=== PATIENT | male | born 1940 | race Caucasian/White ===

== ENCOUNTER 2017-03-28 10:56 | Emergency (ER) | payer OTHER, MEDICARE ==
[2017-03-28 11:40] VITALS: BP 116/68
--- NOTE | 2017-03-28 11:52 | UC ---
Hand/Wrist HPI - HPI Summary HPI Summary: right hand pain and swelling after a fall thumb, index and middle finger tenderness, full rom, tender to touch - History Of Current Complaint Chief Complaint: UCUpperExtremity Stated Complaint: HAND INJURY Time Seen by Provider: 03/28/17 11:35 Hx Obtained From: Patient, Family/Lead [employer]er [employer] ?: No Mechanism Of Injury: fall Onset/Duration: Sudden Onset, Lasting Days - 2, Still Present Severity Initially: Moderate Severity Currently: Moderate Pain Intensity: 6 Pain Scale Used: 0-10 Numeric Character Of Pain: Aching, Throbbing Aggravating Factor(s): Movement Alleviating: Rest, Ice, OTC Meds Associated Signs And Symptoms: Positive: Swelling, Bruising Related History: Dominant Hand Right - Allergies/Home Medications Allergies/Adverse Reactions: Allergies Allergy/AdvReac Type Severity Reaction Status Date / Time Penicillins Allergy Severe Difficulty Verified 05/20/16 11:20 Breathing Tree Nuts Allergy Severe anaphylaxis Verified 05/20/16 11:20 peanuts Allergy Anaphylatic Uncoded 03/28/17 11:40 Shock PMH/Surg Hx/FS Hx/Imm Hx Previously Healthy: No Neurological History: Other Other Neurological History: Parlinsons - Surgical History Surgical History: None Surgery Procedure, Year, and Place: 02/2012 SPINAL FUSION OF L4/5- [facility] [facility] brain stimulation leads placed - Family History Known Family History: Positive: None - Social History Occupation: Retired Lives: With Family Alcohol Use: Daily Alcohol Amount: 1 drink with dinner Substance Use Type: None Smoking Status (MU): Former Smoker Type: Cigars Have You Smoked in the Last Year: No Household Exposure Type: Cigarettes Review of Systems Constitutional: Negative Skin: Negative Eyes: Negative ENT: Negative Respiratory: Negative Cardiovascular: Negative Gastrointestinal: Negative Genitourinary: Negative Motor: Negative Neurovascular: Negative Musculoskeletal: Arthralgia - right hand 1,2,3 fingers Neurological: Negative Psychological: Negative All Other Systems Reviewed And Are Negative: Yes Physical Exam Triage Information Reviewed: Yes Appearance: Well-Appearing, No Pain Distress, Well-Nourished Vital Signs: Initial Vital Signs Temp 97.9 F 03/28/17 11:34 Pulse 58 03/28/17 11:34 Resp 16 03/28/17 11:34 BP 116/68 03/28/17 11:34 Pulse Ox 100 03/28/17 11:34 Vital Signs Reviewed: Yes Eye Exam: Normal Eyes: Positive: Conjunctiva Clear ENT Exam: Normal ENT: Positive: Normal ENT inspection, Hearing grossly normal, TMs normal. Negative: Nasal congestion, Nasal drainage, Trismus, Muffled/hoarse voice Dental Exam: Normal Neck exam: Normal Neck: Positive: Supple, Nontender, No Lymphadenopathy Respiratory Exam: Normal Respiratory: Positive: Chest non-tender, Lungs clear, Normal breath sounds, No respiratory distress, No accessory muscle use Cardiovascular Exam: Normal Cardiovascular: Positive: RRR, Pulses Normal, Brisk Capillary Refill Musculoskeletal Exam: Normal Musculoskeletal: Positive: Strength Intact, ROM Limited @, Edema @ - right hand Neurological Exam: Normal Neurological: Positive: Alert, Muscle Tone Normal Psychological Exam: Normal Skin Exam: Normal Diagnostics - Radiology No standard instances Xray Interpretation: No Acute Changes Radiology Interpretation Completed By: Radiologist Re-Evaluation - Re-Evaluation First Eval Change: Improved - aliyah wrap apllied for comfort and help to decrease swelling Hand/Wrist Course/Dx - Course Course Of Treatment: rice, ibuprofen follow with pcp - Differential Dx/Diagnosis Differential Diagnosis/HQI/PQRI: Contusion, Fracture, Sprain, Strain Provider Diagnoses: Right hand contusion Discharge - Discharge Plan Condition: Stable Disposition: HOME Patient Education Materials: Ibuprofen (By mouth), Contusion in Adults (ED), RICE Therapy (ED) Referrals: Carolyn Sandra MD [Primary Care Provider] - If Needed
--- NOTE | 2017-03-28 12:47 | RAD ---
Indication: Fall, first 3 digits pain. 4 views of the right hand demonstrates no fracture. No other bone or joint abnormality is identified. IMPRESSION: No fracture of the right hand is noted.
== END 2017-03-28 12:57 | disposition home or self-care (01) ==
LOC: UCEAST 10:56
DX: S60.221A Contusion of right hand, initial encounter (principal); W19.XXXA Unspecified fall, initial encounter; Z88.0 Allergy status to penicillin; Z91.010 Allergy to peanuts; Z91.018 Allergy to other foods; Z87.891 Personal history of nicotine dependence
CPT/HCPCS: 99211; G0463

== ENCOUNTER 2017-04-03 12:10 | Emergency (ER) | payer OTHER, MEDICARE ==
--- NOTE | 2017-04-03 13:29 | UC ---
Hand/Wrist HPI - HPI Summary HPI Summary: SEEN HERE 03/28/17 WITH RIGHT HAND PAIN AND SWELLING AFTER FALLING. XRAYS WERE NEGATIVE AND PT DX WITH CONTUSION. THOMPSON WRAPPED FOR COMFORT. PT PRESENTS WITH PERSISTENT RIGHT 2ND FINGER PAIN AND SWELLING. - History Of Current Complaint Chief Complaint: UCSkin Stated Complaint: RED SWOLLEN HAND Time Seen by Provider: 04/03/17 13:21 Hx Obtained From: Patient Onset/Duration: Sudden Onset, Still Present Severity Initially: Moderate Severity Currently: Moderate Pain Intensity: 4 Pain Scale Used: 0-10 Numeric Character Of Pain: Aching Aggravating Factor(s): Movement Alleviating: Rest Associated Signs And Symptoms: Positive: Swelling, Redness Related History: Dominant Hand Right - Allergies/Home Medications Allergies/Adverse Reactions: Allergies Allergy/AdvReac Type Severity Reaction Status Date / Time Penicillins Allergy Severe Difficulty Verified 04/03/17 12:29 Breathing Tree Nuts Allergy Severe anaphylaxis Verified 04/03/17 12:29 peanuts Allergy Anaphylatic Uncoded 04/03/17 12:29 Shock PMH/Surg Hx/FS Hx/Imm Hx Other Neurological History: PARKINSONS - Surgical History Surgical History: None Surgery Procedure, Year, and Place: 02/2012 SPINAL FUSION OF L4/5- [facility] [facility] brain stimulation leads placed - Family History Known Family History: Positive: None - Social History Alcohol Use: Daily Alcohol Amount: 1 drink with dinner Substance Use Type: None Smoking Status (MU): Former Smoker Type: Cigars Have You Smoked in the Last Year: No Household Exposure Type: Cigarettes Review of Systems Constitutional: Negative Skin: Other - ERYTHEMA Respiratory: Negative Cardiovascular: Negative Gastrointestinal: Negative Musculoskeletal: Arthralgia, Decreased ROM, Edema All Other Systems Reviewed And Are Negative: Yes Physical Exam Triage Information Reviewed: Yes Appearance: Well-Appearing, No Pain Distress, Well-Nourished Vital Signs: Initial Vital Signs Temp 98 F 04/03/17 12:30 Pulse 67 04/03/17 12:30 Resp 15 04/03/17 12:30 Pulse Ox 99 04/03/17 12:30 Vital Signs Reviewed: Yes Eyes: Positive: Conjunctiva Clear ENT: Positive: Hearing grossly normal Neck: Positive: Supple Respiratory: Positive: No respiratory distress, No accessory muscle use Cardiovascular: Positive: Pulses Normal Abdomen Description: Positive: Soft Musculoskeletal: Positive: Edema @ - RIGHT 2ND FINGER PROXIMALLY WITH SOME ERYTHEMA, Other: - TTP RIGHT 2ND FINGER OVER PROXIMAL PHALANX Neurological: Positive: Alert Psychological: Positive: Age Appropriate Behavior Skin: Negative: rashes Diagnostics - Radiology RIGHT 2ND FINGER XRAY Xray Interpretation: No Acute Changes Radiology Interpretation Completed By: Radiologist Hand/Wrist Course/Dx - Differential Dx/Diagnosis Provider Diagnoses: RIGHT 2ND FINGER SPRAIN Discharge - Discharge Plan Condition: Stable Disposition: HOME Prescriptions: Acetaminop/Codeine 30 MG TAB* [Tylenol/Codeine 30 MG TAB*] 1 - 2 tab PO Q6H PRN #20 tab MDD 8 PRN Reason: Pain Cephalexin CAP* [Keflex 500 CAP*] 1,000 mg PO BID #20 cap Patient Education Materials: Finger Sprain (ED) Referrals: Carolyn Sandra MD [Primary Care Provider] - If Needed Abdiaziz Alcantar MD [Medical Doctor] - If Needed Additional Instructions: XRAY TODAY CONFIRMS NO FRACTURE. REDNESS LIKELY DUE TO SWELLING AND INFLAMMATION. DUE TO SMALL CHANCE OF INFECTION WILL COVER WITH CEPHALEXIN. SPLINT FOR COMFORT. KEEP HAND ELEVATED WHEN POSSIBLE. FOLLOW-UP WITH PCP OR ORTHO IF NOT IMPROVING.
--- NOTE | 2017-04-03 13:57 | RAD ---
INDICATION: Pain and swelling after fall COMPARISON: None TECHNIQUE: AP, lateral, and oblique views were obtained. FINDINGS: There is no acute fracture or dislocation. There is soft tissue swelling about the PIP joint. IMPRESSION: NO ACUTE FRACTURE.
[2017-04-03 14:29] VITALS: BP 131/81
== END 2017-04-03 14:33 | disposition home or self-care (01) ==
LOC: UCEAST 12:10
DX: S63.610D Unspecified sprain of right index finger, subsequent encounter (principal); W19.XXXD Unspecified fall, subsequent encounter; Z88.0 Allergy status to penicillin; G20 Parkinson's disease; Z87.891 Personal history of nicotine dependence
CPT/HCPCS: 73140; 99213; G0463

== ENCOUNTER → 2018-11-18 16:57 | Emergency (ER) | payer MEDICARE, OTHER ==
[~2018-11-18 16:57] MED LIST: NS 0.9% 500 ML* 500 ML IV ONE; Sodium Phosphate ADULT ENEMA* 118 ml bottle PR ONE
[2018-11-18 17:04] VITALS: BP 158/77
[2018-11-18 17:37] LABS: ABS Basophils 0 10^3/ul (0-0.2); ABS Eosinophils 0.2 10^3/ul (0-0.6); ABS Monocytes 0.5 10^3/ul (0-0.8); ABS Neutrophils 4.2 10^3/ul (1.5-7.7); ABS Nucleated RBC 0 10^3/ul; Eosinophil % 3.1 %; Hematocrit 36 % (36-46); Hemoglobin 12.2 g/dL (14.0-18.0); Lymphocyte % 17.4 %; Mean Corpuscular HGB Conc 34 g/dL (31-36); Mean Corpuscular Hemoglobin 31 pg (27-31); Mean Corpuscular Volume 92 fL (80-94); Mean Platelet Volume 8.5 fL (7.4-10.4); Nucleated Red Blood Cells % 0; Platelet Count 158 10^3/uL (150-450); Red Blood Count 3.89 10^6 /uL (4.18-5.48); Red Cell Distribution Width 15 % (10.5-15)
[2018-11-18 17:55] LABS: Albumin 4.1 g/dL (3.2-5.2); Albumin/Globulin Ratio 1.6 (1-3); BUN/Creatinine Ratio 23.9 (8-20); C Reactive Protein 3.83 mg/L (<8.01); Calcium 8.8 mg/dL (8.6-10.3); EGFR African American 129.8 (>60); EGFR Non-African American 107.3 (>60); Globulin 2.6 g/dL (2-4); Potassium 3.7 mmol/L (3.5-5.0); Total Protein 6.7 g/dL (6.4-8.9)
--- NOTE | 2018-11-18 18:46 | ED ---
GI/ HPI - HPI Summary HPI Summary: Patient complains of constipation for 2-3 days starting 5 days ago. Patient had abdominal pain during episode of constipation but then took MiraLAX and has been having diarrhea starting yesterday, with complete resolution of abdominal pain. Patient was sent today by [facility] for KUB outpatient to rule out obstruction. KUB Positive for large stool burden, negative for dilated bowel. Patient sent here for "cleaning out". Patient denies abdominal pain, fever, cough, sore throat, CP, SOB, N/V, change in urine. - History of Current Complaint Chief Complaint: EDConstipation Time Seen by Provider: 11/18/18 17:07 Stated Complaint: ABD DISTENTION PER [facility] PAPER AND Hx Obtained From: Patient, Family/Supervisor [employer] Making Onset/Duration: Started Days Ago Current Severity: None Pain Intensity: 0 Associated Signs and Symptoms: Positive: Diarrhea Aggravating Factor(s): Nothing Alleviating Factor(s): Nothing - Allergy/Home Medications Allergies/Adverse Reactions: Allergies Allergy/AdvReac Type Severity Reaction Status Date / Time bee venom protein (honey bee) Allergy Severe Anaphylatic Verified 11/18/18 17:05 Shock Penicillins Allergy Severe Difficulty Verified 11/18/18 17:05 Breathing nut - unspecified Allergy Anaphylatic Verified 11/18/18 17:05 Shock Home Medications: Home Medications Carbidopa/Levodop 25/100 MG(*) [Sinemet 25/100 TAB(*)] 0.5 tab PO 0700,1000, 1400 11/18/18 [History Confirmed 11/18/18] Carbidopa/Levodop CR 50/200(*) [Sinemet CR 50/200(*)] 1 tab.cr PO .FIVE TIMES A DAY 11/18/18 [History Confirmed 11/18/18] Rivastigmine PATCH 4.6 MG(NF) [Exelon(NF)] 4.6 mg TOPICAL DAILY 11/18/18 [ History Confirmed 11/18/18] Sertraline* [Zoloft*] 75 mg PO DAILY 11/18/18 [History Confirmed 11/18/18] clonazePAM TAB(*) [KlonoPIN TAB(*)] 0.5 mg PO BID PRN 11/18/18 [History Confirmed 11/18/18] PMH/Surg Hx/FS Hx/Imm Hx Endocrine/Hematology History: Denies: Hx Diabetes, Hx Thyroid Disease Cardiovascular History: Reports: Hx Hypotension - Hx of orthostatic hypotension Denies: Hx Hypertension - ORTHOSTATIC HYPOTENSION Respiratory History: Denies: Hx Asthma, Hx Chronic Obstructive Pulmonary Disease (COPD) GI History: Denies: Hx Ulcer Musculoskeletal History: Reports: Hx Back Problems - Fusion L4-5 2011, Other Musculoskeletal History - FUSION OF L 4/5 LAST SUMMER, DOING WELL, sciatica Sensory History: Reports: Hx Cataracts - BILATERAL, Hx Contacts or Glasses - GLASSES Denies: Hx Hearing Aid Opthamlomology History: Reports: Hx Cataracts - BILATERAL, Hx Contacts or Glasses - GLASSES Neurological History: Reports: Other Neuro Impairments/Disorders - HX OF PARKINSONS FOR 10 YRS. 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 Psychiatric History: Reports: Hx Anxiety - MILD, Hx Depression - Surgical History Surgery Procedure, Year, and Place: 02/2012 SPINAL FUSION OF L4/5- [facility] [facility]. Deep brain stimulation leads placed Hx Anesthesia Reactions: No Infectious Disease History: No Infectious Disease History: Denies: Hx Clostridium Difficile, Hx Hepatitis, Hx Human Immunodeficiency Virus (HIV), Hx of Known/Suspected MRSA, Hx Shingles, Hx Tuberculosis, Hx Known/ Suspected VRE, Hx Known/Suspected VRSA, History Other Infectious Disease, Traveled Outside the [place] in Last 30 Days - Family History Known Family History: Positive: None, Diabetes - Social History Alcohol Use: None Alcohol Amount: 2-3 drinks/week Substance Use Type: Reports: None Smoking Status (MU): Former Smoker Type: Cigars Have You Smoked in the Last Year: No Review of Systems Constitutional: Negative Eyes: Negative ENT: Negative Cardiovascular: Negative Respiratory: Negative Positive: Diarrhea Genitourinary: Negative Musculoskeletal: Negative Skin: Negative Neurological: Negative Psychological: Normal All Other Systems Reviewed And Are Negative: Yes Physical Exam - Summary Physical Exam Summary: Abdomen soft nontender. Lung sounds clear to auscultation bilaterally. RRR. No peripheral edema. Triage Information Reviewed: Yes Vital Signs On Initial Exam: Initial Vitals Temp Pulse Resp BP Pulse Ox 97.9 F 61 16 158/77 98 11/18/18 17:00 11/18/18 17:00 11/18/18 17:00 11/18/18 17:00 11/18/18 17:00 Vital Signs Reviewed: Yes Appearance: Positive: Well-Appearing Skin: Positive: Warm Head/Face: Positive: Normal Head/Face Inspection Eyes: Positive: Normal Neck: Positive: Supple Respiratory/Lung Sounds: Positive: Clear to Auscultation Cardiovascular: Positive: Normal Abdomen Description: Positive: Nontender Musculoskeletal: Positive: Normal Neurological: Positive: Normal Psychiatric: Positive: Normal AVPU Assessment: Alert - [place] Coma Scale Best Eye Response: 4 - Spontaneous Best Motor Response: 6 - Obeys Commands Best Verbal Response: 5 - Oriented Coma Scale Total: 15 Diagnostics - Vital Signs Vital Signs Temp Pulse Resp BP Pulse Ox 11/18/18 17:00 97.9 F 61 16 158/77 98 - Laboratory Lab Results: Lab Results 11/18/18 11/18/18 Range/Units 17:27 17:27 WBC 6.0 (3.5-10.8) 10^3/uL RBC 3.89 L (4.18-5.48) 10^6 /uL Hgb 12.2 L (14.0-18.0) g/dL Hct 36 (36-46) % MCV 92 (80-94) fL MCH 31 (27-31) pg MCHC 34 (31-36) g/dL RDW 15 (10.5-15) % Plt Count 158 (150-450) 10^3/uL MPV 8.5 (7.4-10.4) fL Neut % (Auto) 70.6 % Lymph % (Auto) 17.4 % Morgan % (Auto) 8.3 % Eos % (Auto) 3.1 % Baso % (Auto) 0.6 % Absolute Neuts (auto) 4.2 (1.5-7.7) 10^3/ul Absolute Lymphs (auto) 1.0 (1.0-4.8) 10^3/ul Absolute Monos (auto) 0.5 (0-0.8) 10^3/ul Absolute Eos (auto) 0.2 (0-0.6) 10^3/ul Absolute Basos (auto) 0 (0-0.2) 10^3/ul Absolute Nucleated RBC 0 10^3/ul Nucleated RBC % 0 Sodium 140 (135-145) mmol/L Potassium 3.7 (3.5-5.0) mmol/L Chloride 107 (101-111) mmol/L Carbon Dioxide 28 (22-32) mmol/L Anion Gap 5 (2-11) mmol/L BUN 17 (6-24) mg/dL Creatinine 0.71 (0.67-1.17) mg/dL Est GFR ( Amer) 129.8 (>60) Est GFR (Non-Af Amer) 107.3 (>60) BUN/Creatinine Ratio 23.9 H (8-20) Glucose 91 (70-100) mg/dL Calcium 8.8 (8.6-10.3) mg/dL Total Bilirubin 1.00 (0.2-1.0) mg/dL AST 11 L (13-39) U/L ALT 3 L (7-52) U/L Alkaline Phosphatase 79 (34-104) U/L C-Reactive Protein 3.83 (<8.01) mg/L Total Protein 6.7 (6.4-8.9) g/dL Albumin 4.1 (3.2-5.2) g/dL Globulin 2.6 (2-4) g/dL Albumin/Globulin Ratio 1.6 (1-3) Result Diagrams: 11/18/18 17:27 11/18/18 17:27 Lab Statement: Any lab studies that have been ordered have been reviewed, and results considered in the medical decision making process. GIGU Course/Dx - Course Course Of Treatment: Patient complains of constipation for 2-3 days starting 5 days ago. Patient had abdominal pain during episode of constipation but then took MiraLAX and has been having diarrhea starting yesterday, with complete resolution of abdominal pain. Patient was sent today by [facility] for KUB outpatient to rule out obstruction. KUB Positive for large stool burden , negative for dilated bowel. Patient sent here for "cleaning out". Patient denies abdominal pain, fever, cough, sore throat, CP, SOB, N/V, change in urine. Physical exam:Abdomen soft nontender. Lung sounds clear to auscultation bilaterally. RRR. No peripheral edema. Vital signs within normal limits. Labs unremarkable. Fleets enema was administered, with several subsequent productive bowel movements. Patient was negative for impaction. Patient was mildly dehydrated per blood work, but refused IV fluids and he will go home and hydrate by by mouth. - Diagnoses Provider Diagnoses: Constipation Discharge - Sign-Out/Discharge Documenting (check all that apply): Patient Departure Patient Received Moderate/Deep Sedation with Procedure: No - Discharge Plan Condition: Stable Disposition: HOME Patient Education Materials: Constipation (ED) Referrals: Carolyn Sandra MD [Primary Care Provider] - Additional Instructions: Take MiraLAX daily. Drink plenty of fluids to maintain hydration. Take magnesium citrate for constipation only as needed. Start with half a bottle. Follow-up with primary care. Return to the ED for any new or worsening symptoms. - Billing Disposition and Condition Condition: STABLE Disposition: Home
== END | disposition home or self-care (01) ==
LOC: ED 16:57
DX: K59.00 Constipation, unspecified (principal); R94.31 Abnormal electrocardiogram [ECG] [EKG]; E03.9 Hypothyroidism, unspecified; Z88.0 Allergy status to penicillin; Z87.891 Personal history of nicotine dependence; Z98.1 Arthrodesis status
CPT/HCPCS: 36415; 80053; 85025; 86140; 93005; 99282; A9270-GY

== ENCOUNTER 2019-05-05 04:05 | Observation (INO) | payer MEDICARE, OTHER ==
--- NOTE | 2019-05-05 04:20 | ED ---
HPI Chest Pain - HPI Summary HPI Summary: 78 year old M brought in by EMS to [facility] complains of chest pain since 02:00 today that woke patient from his sleep. Reports worsening bilateral lower extremity swelling. Denies shortness of breath, nausea, diaphoresis. EMS administered 324 mg aspirin per nurse which provided relief. The patient rates the pain 0/10 in severity. Symptoms aggravated by nothing. Symptoms alleviated by 324 mg aspirin. Patient additionally reports that yesterday morning, he had an episode of garbled speech lasting 10-15 minutes. Patient states he has Parkinson's disease. Denies PMHX HTN, diabetes, hypercholesterolemia. Denies FHx HI, DVT. Denies recent travel on bus/plane. Denies recent surgery in the last 1-2 months. Patient states he takes ibuprofen. Last stress test years ago. Medications reviewed. Allergies noted. - History of Current Complaint Time Seen by Provider: 05/05/19 04:11 Hx Obtained From: Patient, Other: - nurse Onset/Duration: Started Hours Ago, Still Present Timing: Constant Current Severity: None Pain Intensity: 0 Pain Scale Used: 0-10 Numeric Aggravating Factor(s): Nothing Alleviating Factor(s): Other: - aspirin 324 mg Associated Signs and Symptoms: Positive: Negative - shortness of breath, nausea , diaphoresis, Other: - worsening bilateral lower extremity swelling - Allergy/Home Medications Allergies/Adverse Reactions: Allergies Allergy/AdvReac Type Severity Reaction Status Date / Time bee venom protein (honey bee) Allergy Severe Anaphylatic Verified 05/05/19 04:23 Shock Penicillins Allergy Severe Difficulty Verified 05/05/19 04:23 Breathing nut - unspecified Allergy Anaphylatic Verified 05/05/19 04:23 Shock Home Medications: Home Medications Midodrine 2.5 mg PO DAILY 05/05/19 [History Confirmed 05/05/19] Miralax 17 g PO BEDTIME 05/05/19 [History Confirmed 05/05/19] Seroquel 25 MG TAB* 50 mg PO BEDTIME 05/05/19 [History Confirmed 05/05/19] PMH/Surg Hx/FS Hx/Imm Hx Endocrine/Hematology History: Denies: Hx Diabetes, Hx Thyroid Disease Cardiovascular History: Reports: Hx Hypotension - Hx of orthostatic hypotension Denies: Hx Hypercholesterolemia, Hx Hypertension - ORTHOSTATIC HYPOTENSION Respiratory History: Denies: Hx Asthma, Hx Chronic Obstructive Pulmonary Disease (COPD) GI History: Denies: Hx Ulcer Musculoskeletal History: Reports: Hx Back Problems - Fusion L4-5 2011, Other Musculoskeletal History - FUSION OF L 4/5 LAST SUMMER, DOING WELL, sciatica Sensory History: Reports: Hx Cataracts - BILATERAL, Hx Contacts or Glasses - GLASSES Denies: Hx Hearing Aid Opthamlomology History: Reports: Hx Cataracts - BILATERAL, Hx Contacts or Glasses - GLASSES Neurological History: Reports: Other Neuro Impairments/Disorders - HX OF PARKINSONS FOR 10 YRS. 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 Psychiatric History: Reports: Hx Anxiety - MILD, Hx Depression - Surgical History Surgery Procedure, Year, and Place: 02/2012 SPINAL FUSION OF L4/5- [facility] IN [facility]. Deep brain stimulation leads placed Hx Anesthesia Reactions: No Infectious Disease History: Denies: Hx Clostridium Difficile, Hx Hepatitis, Hx Human Immunodeficiency Virus (HIV), Hx of Known/Suspected MRSA, Hx Shingles, Hx Tuberculosis, Hx Known/ Suspected VRE, Hx Known/Suspected VRSA, History Other Infectious Disease, Traveled Outside the [place] in Last 30 Days - Family History Known Family History: Positive: Diabetes Negative: Cardiac Disease - Social History Alcohol Use: Weekly Alcohol Amount: 2-3 drinks/week Hx Substance Use: No Substance Use Type: Reports: None Hx Tobacco Use: Yes Smoking Status (MU): Former Smoker Type: Cigars Have You Smoked in the Last Year: No Review of Systems Negative: Skin Diaphoresis Positive: Chest Pain Negative: Shortness Of Breath Negative: Nausea Positive: Other - BLE swelling All Other Systems Reviewed And Are Negative: Yes Physical Exam - Summary Physical Exam Summary: Constitutional: Well-developed, Well-nourished, Alert. (-) Distressed Skin: Warm, Dry HENT: Normocephalic; Atraumatic Eyes: Conjunctiva normal Neck: Musculoskeletal ROM normal neck. (-) JVD, (-) Stridor, (-) Tracheal deviation Cardio: Rhythm regular, rate normal, Heart sounds normal; Intact distal pulses; The pedal pulses are 2+ and symmetric. Radial pulses are 2+ and symmetric. (-) Murmur Pulmonary/Chest wall: Effort normal. (-) Respiratory distress, (-) Wheezes, (-) Rales, Two deep brain stimulators devices in his chest wall, one in each Abd: Soft, (-) tenderness, (-) Distension, (-) Guarding, (-) Rebound Musculoskeletal: (-) Edema, Good pulses bilaterally in radius, No calf tenderness, No venous cords, No pain with dorsiflexion of foot. Lymph: (-) Cervical adenopathy Neuro: Alert, Oriented x3 Psych: Mood and affect Normal GCS: 15 Triage Information Reviewed: Yes Vital Signs Reviewed: Yes Diagnostics - Laboratory Result Diagrams: 05/05/19 04:39 05/05/19 04:39 Lab Statement: Any lab studies that have been ordered have been reviewed, and results considered in the medical decision making process. - Radiology CXR Radiology Interpretation Completed By: ED Physician Summary of Radiographic Findings: NO ACUTE PROCESS. pending official report - EKG 0423 Summary of EKG Findings: Artifact in every lead. No obvious STEMI. T wave inversion in AVL Chest Pain Course/Dx - Course Course Of Treatment: Patient is here with chest pain that was relieved by the time he got here. Patient has no PE risk factors and has a well score of 0. Patient had an EKG which showed no evidence of ischemia outside of a T-wave inversion in aVL. Patient had negative chest x-ray for any acute abnormality. Patient had negative troponin. In addition, patient had symptoms of a TIA roughly 24 hours ago. Patient is neurologically intact now. Patient had negative CT head performed. Patient is admitted to medicine for further workup if his chest pain and TIA. - Diagnoses Provider Diagnoses: TIA (transient ischemic attack), Chest pain, Parkinson's disease - Provider Notifications Discussed Care Of Patient With: Cesar Downey Time Discussed With Above Provider: 05:25 Instructed by Provider To: Other - Dr. Downey, hospitalist, agrees to admit patient Discharge ED - Sign-Out/Discharge Documenting (check all that apply): Patient Departure - admit Patient Received Moderate/Deep Sedation with Procedure: No - Discharge Plan Condition: Stable Disposition: ADMITTED TO [facility] Referrals: Carolyn Sandra MD [Primary Care Provider] - - Billing Disposition and Condition Condition: STABLE Disposition: Admitted to [facility] - Attestation Statements Document Initiated by Scribe: Yes Documenting Scribe: Shaniqua Galeana Provider For Whom Scribe is Documenting (Include Credential): Tommie Peng MD Scribe Attestation: Shaniqua Schreiber, scribed for Tommie Peng MD on 05/05/19 at 0544. Scribe Documentation Reviewed: Yes Provider Attestation: The documentation as recorded by the scribe, Shaniqua Galeana accurately reflects the service I personally performed and the decisions made by me, Tommie Peng MD Status of Scribe Document: Viewed
[2019-05-05 04:45] LABS: ABS Eosinophils 0.3 10^3/ul (0-0.6); ABS Lymphocytes 1.3 10^3/ul (1.0-4.8); ABS Monocytes 0.4 10^3/ul (0-0.8); ABS Neutrophils 2.5 10^3/ul (1.5-7.7); Eosinophil % 5.9 %; Hematocrit 37 % (42-52); Hemoglobin 12.7 g/dL (14.0-18.0); Lymphocyte % 28.9 %; Mean Corpuscular HGB Conc 34 g/dL (31-36); Mean Corpuscular Hemoglobin 31 pg (27-31); Mean Corpuscular Volume 91 fL (80-94); Mean Platelet Volume 8.3 fL (7.4-10.4); Nucleated Red Blood Cells % 0.1; Platelet Count 141 10^3/uL (150-450); Red Blood Count 4.06 10^6 /uL (4.18-5.48); Red Cell Distribution Width 15 % (10-15); White Blood Count 4.5 10^3/uL (3.5-10.8)
[2019-05-05 05:04] LABS: ALT < 3 U/L (7-52); AST 10 U/L (13-39); Albumin/Globulin Ratio 1.5 (1-3); Alkaline Phosphatase 89 U/L (34-104); Anion Gap 2 mmol/L (2-11); Blood Urea Nitrogen 21 mg/dL (6-24); CO2 Carbon Dioxide 31 mmol/L (22-32); Calcium 8.8 mg/dL (8.6-10.3); Chloride 109 mmol/L (101-111); EGFR Non-African American 109.1 (>60); Globulin 2.7 g/dL (2-4); Glucose 111 mg/dL (70-100); Potassium 4.4 mmol/L (3.5-5.0); Sodium 142 mmol/L (135-145); Total Protein 6.7 g/dL (6.4-8.9)
[2019-05-05 05:06] LABS: Troponin I 0.01 ng/mL (<0.04)
[2019-05-05] MEDS: Carbidopa/Levodop CR 50/200(*) TAB.CR PO SCH ×4 (08:40→21:23)
[2019-05-05] MEDS: Aspirin 81 mg CHEW TAB* 81 MG TAB.CHEW PO SCH (10:41)
[2019-05-05] MEDS: Sertraline* 100 MG TAB PO SCH (11:39)
[2019-05-05] MEDS: Fludrocortisone Acetate TAB* 0.1 MG PO SCH (11:39)
[2019-05-05] MEDS: CMCS: Midodrine 5 MG TAB PO SCH (11:50)
[2019-05-05] MEDS: Carbidopa/Levodop 25/100 MG TAB(*) PO SCH ×2 (13:27→15:53)
--- NOTE | 2019-05-05 14:12 | ECHO ---
*[facility]* [place] [address] Fax #: [phone] Transthoracic Echocardiogram (Report amended [id number]) Patient: Eber Jaquez : 1940 Study Date: 05/05/2019 Age: 78 Gender: M HR: 72 bpm Height: 69 in /175.3 cm BSA: 1.95 m^2 Weight: 169.6 lb /77.1 kg BMI: 25.1 kg/m^2 *Health Facilities Surveyor: * Chelly Jones RDCS RN *Referring Physician: * Carleen TempletonReading Physician: * Emil Parks MD Indications: TIA. History: Chest pain. Bilateral edema. Parkinson's disease. Risk factors: Former tobacco use. Conclusions Summary: - Left ventricle: The cavity size is normal. Wall thickness is moderately increased. Systolic function is normal. The estimated ejection fraction is 55-60%. Wall motion is normal; there are no regional wall motion abnormalities. - Right ventricle: The cavity size is normal. Systolic function is normal. - Left atrium: The atrium is mildly to moderately dilated. - Atrial septum: No defect or patent foramen ovale is identified. Bubble study was negative - Aortic root: The aortic root is mild to moderately dilated at 4.3 cm. - Ascending aorta: The ascending aorta is moderately dilated at 4.6 cm. - Pulmonary arteries: Systolic pressure is mildly increased, estimated to be 39 mm Hg. - No more than mild valvular regurgitation noted. Recommendations: Compared to prior study from 10/2015, aortic root previously measured at 4.6 cm and ascending aorta at 4.2 cm Study data: Transthoracic echocardiogram. Procedure: Transthoracic echocardiography was performed. Image quality was fair. Intravenous agitated saline was administered. A bubble study was performed. Images 2 and 4. Complete 2D, spectral Doppler, and color flow Doppler. Location: Bedside. Patient status: Inpatient. Patient room number: ED 19. Rhythm: Normal sinus rhythm with PACs and PVCs. Findings Left ventricle: The cavity size is normal. Wall thickness is moderately increased. Systolic function is normal. The estimated ejection fraction is 55-60%. Wall motion is normal; there are no regional wall motion abnormalities. Doppler parameters are consistent with abnormal left ventricular relaxation (grade 1 diastolic dysfunction). Right ventricle: The cavity size is normal. Systolic function is normal. Left atrium: The atrium is mildly to moderately dilated. Right atrium: The atrium is mildly to moderately dilated. Atrial septum: No defect or patent foramen ovale is identified. Bubble study was negative Mitral valve: The leaflets are mildly thickened. There is no evidence of stenosis. There is mild regurgitation. Aortic valve: The valve is trileaflet. The leaflets are mildly thickened. There is no evidence of stenosis. There is mild regurgitation. Tricuspid valve: The leaflets are normal thickness. There is no evidence of stenosis. There is trace to mild regurgitation. Pulmonic valve: The valve is structurally normal. There is no evidence of stenosis. There is trace to mild regurgitation. Aorta: Aortic root: The aortic root is mild to moderately dilated at 4.3 cm. Ascending aorta: The ascending aorta is moderately dilated at 4.6 cm. Aortic arch: The aortic arch is not dilated. Pericardium: There is no significant pericardial effusion. Pulmonary arteries: The main pulmonary artery is normal-sized. Systolic pressure is mildly increased, estimated to be 39 mm Hg. Systemic veins: Inferior vena cava: The vessel is normal in size. There is (>= 50%) respiratory change in the IVC dimension. Measurements Left ventricle Value Ref Aortic valve continued Value Ref ARG[place], LAX 4.9 cm 4.2 - 5.8 VTI, S 29.4 cm ----- ESD, LAX 3.8 cm 2.5 - 4.0 Mean grad, S 4.2 mm Hg ----- FS, LAX (L) 23 % 25 - 43 Peak grad, S 7.1 mm Hg ----- PW, ED (H) 1.4 cm 0.6 - 1.0 LVOT/AV, VTI ratio 0.6 ----- IVS/PW, ED 1.06 --------- AR peak v 3.8 m/sec ----- E', lat valentino, TDI (L) 5.0 cm/sec >=10.0 AR decel time 1509 ms - ---- E/e', lat valentino, TDI 12 --------- AR PHT 438 ms ---- - E', med valentino, TDI (L) 4.0 cm/sec >=7.0 AR peak grad 58 mm Hg - ---- E/e', med valentino, TDI 15 --------- E', avg, TDI 4.5 cm/sec --------- Mitral valve Value Ref E/e', avg, TDI 13 <=14 Peak E 0.59 m/sec - ---- Peak A 0.6 m/sec ----- LVOT Value Ref Decel time 253 ms ----- Peak maribel, S 0.9 m/sec --------- Peak E/A ratio 0.99 ----- VTI, S 17.7 cm --------- Peak grad, S 3 mm Hg --------- Pulmonic valve Value Ref Mean grad, S 2 mm Hg --------- Peak v, S 0.87 m/sec ----- Peak grad, S 3.0 mm Hg ----- Ventricular septum Value Ref IVS, ED (H) 1.5 cm 0.6 - 1.0 Tricuspid valve Value Ref TR peak v (H) 3 m/sec <=2.8 Right ventricle Value Ref Peak RV-RA grad, S 36 mm Hg ----- ARGENT[place], LAX 3.6 cm --------- ARG[place] major ax, A4C (L) 3.2 cm 5.9 - 8.3 Aortic root Value Ref Pressure, S 39 mm Hg --------- Root diam (H) 4.3 cm <4.1 Left atrium Value Ref Ascending aorta Value Ref SI dim ES, LAX 4.2 cm --------- AAo AP diam, S 4.6 cm ----- ML dim, A4C 4.8 cm --------- SI dim, A4C 5.5 cm --------- Aortic arch Value Ref Vol, ES, 2-p 82 ml --------- Arch diam 3.0 cm ----- Vol/bsa, ES, 2-p (H) 42 ml/m^2 16 - 34 Decending aorta Value Ref Right atrium Value Ref Lobo peak maribel 0.61 m/sec ----- ML dim, ES, A4C 4.3 cm 2.6 - 4.4 SI dim, ES, A4C (H) 5.8 cm 3.4 - 5.3 Pulmonary artery Value Ref Estimated RAP 3 mm Hg --------- Pressure, S 39.0 mm Hg ----- Aortic valve Value Ref Inferior vena cava Value Ref Peak v, S 1.33 m/sec --------- Diam 2.0 cm ----- Legend: (L) and (H) ghassan values outside specified reference range. Amended Emil Parks MD 05/05/2019 14:12
--- NOTE | 2019-05-05 20:46 | CONS ---
NEUROLOGY CONSULTATION NOTE: DATE OF CONSULT: 05/05/19 CONSULTING PROVIDER: Dr. Templeton. REASON FOR CONSULT: Possible TIA. CHIEF COMPLAINT: Episode of garbled speech. HISTORY OF PRESENT ILLNESS: Mr. 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 [place] yesterday for 2 different problems. The patient initially had an episode of garbled speech on 05/04/19. This took place at 12 p.m. This lasted for 10 minutes. The patient was walking with his for about 10 minutes. They stopped and suddenly he had garbled speech that lasted for 10 minutes. It resolved when the patient sat down in a chair. He has never had any similar episodes in the past. He never had any focal weakness, new paresthesias, or facial droop. He did not have any headaches. The second problem that took place was the patient woke up at 3 a.m. due to severe chest pain. His thought it was indigestion. The chest pain seems to have subsided. In regards to his Parkinson's disease, the patient was diagnosed 20 years ago. He has got bilateral deep brain stimulators. He follows up with a neurologist at [facility] in [facility]. He is on Sinemet 25/100 which he takes half a tablet at 8, 11:30, and 1500 and then Sinemet 50/200 which he takes 1 tablet 5 times a day. He is on a total dose of 1050 of levodopa a day. He is also taking Seroquel 50 mg at bedtime. He is also on fludrocortisone for known orthostatic hypotension. The patient currently is complaining about his chronic low back pain. He has got history of moderate to severe degenerative disk of the lumbar spine, status post minimal invasive surgery. He required open surgery but due to his condition, he was deemed not a candidate for further evaluation. This was presented to me by his today. The , Mrs. Jaquez, also stated that the patient's blood pressure when he came in the ED yesterday, systolic was in the 70s but I am unable to locate that blood pressure measurement. According to Mrs. Jaquez, the patient falls daily. Usually when his blood pressure drops, he falls to the ground. He has had multiple head traumas in the past. He is definitely not safe to ambulate without some assistance but he refuses and sometimes forgets to use his walker. The couple live in [facility]. PAST MEDICAL HISTORY: Orthostatic hypotension related to Parkinson's disease, Parkinson's disease, lumbosacral degenerative disk disease. The patient used to follow up with Dr. Mooney in the past. The patient has diagnosed history of chronic inflammatory demyelinating polyneuritis. He was on IVIG at some point. He has benign essential hypertension, dyslipidemia, sciatica. PAST SURGICAL HISTORY: Lumbar spine minimal invasive procedure, bilateral deep brain stimulators. MEDICATIONS: 1. Fludrocortisone 0.1 mg p.o. daily. 2. Sertraline 100 mg p.o. daily. 3. Carbidopa/levodopa 0.5 tabs 8 o'clock, 11:30, and 1500. 4. Carbidopa/levodopa 50/200 one tablet p.o. 5 times a day. 5. Seroquel 25 mg p.o. at bedtime. 6. Midodrine 2.5 mg p.o. daily. 7. MiraLAX 17 g p.o. at bedtime. SOCIAL HISTORY: The patient is a former tobacco user. He rarely drinks alcohol. He lives with his . FAMILY HISTORY: No family history of stroke or seizures. REVIEW OF SYSTEMS: A 14-point review of systems was obtained and otherwise negative except for what was mentioned in the HPI. PHYSICAL EXAMINATION: Vital Signs: Temperature of 97, pulse of 69, heart rate of 101, respiratory rate of 20, blood pressure 146/67. General: Ill-appearing frail man, who is well nourished, appears slightly dehydrated, but in no acute distress. He has got dry oral mucosa. Head: Atraumatic/normocephalic without obvious abnormality. Eyes: Conjunctivae/corneas are clear. Neck is supple and symmetrical with no carotid bruits. Cardiovascular: Regular rate and rhythm with normal S1, S2. Respiratory: Clear to auscultation bilaterally. Extremities: Normal range of motion with no cyanosis or edema. Skin: No skin lesions or laceration. Psych: Affect is flat. Normal mood. Neurological Examination: Awake, alert, oriented to person, but not time or place. He is extremely tired when I assessed him today. Speech and language including expression, repetition, comprehension were assessed and found to be normal. Cranial Nerves: Pupils are equal, round and reactive to light, extraocular muscles are intact, no facial asymmetry. Tongue is symmetrical and midline with no atrophy or fasciculation. Motor Examination: 5/5 strength in the upper and lower extremities symmetrically. Sensory: Normal sensation to light touch throughout. Reflexes 1+ throughout except 0 at the ankles bilaterally. Coordination: Normal [id number]-[id number] and heel- to-lauren testing and gait was not assessed during this evaluation. DIAGNOSTIC STUDIES/LAB DATA: Labs, imaging, and other diagnostic testing: WBC 4.5, hemoglobin of 12.7, hematocrit of 37, platelet count of 141. Sodium of 142 , potassium 4.4, chloride of 109, anion gap of 2, BUN of 21, creatinine is 0.70 , BUN and creatinine ratio of 30, glucose of 111. AST is 10. CT head without contrast showed no evidence of acute intracranial abnormality. The patient had a transthoracic echo on 04/25/19 that showed an EF of 55 to 60% and negative bubble study. ASSESSMENT AND RECOMMENDATIONS: Mr. Eber Jaquez is a 78-year-old man with history of Parkinson's disease with orthostatic hypotension, chronic inflammatory demyelinating polyneuritis, who presents with 10-minute episode of transient dysarthria and chest pain. The patient denied any chest pain at this time. NIH stroke scale is 0. 1. Transient dysarthria- this has resolved. The etiology is unclear. Dysarthria is a nonlocalizing neurological symptom that can occur with multiple neurological disorders including TIA, stroke, tumors, and with known neurodegenerative disorders. The patient was standing for about 10 minutes before he developed dysarthria and it resolved when he sat down. Again, it is extremely difficult to differentiate if he had a TIA or this may have been an episode of symptomatic orthostatic hypotension in the setting of dehydration, and after ambulating for approximately 10 minutes. I am extremely concerned that placing him on aspirin will increase his risk of bleeding since he falls almost on a daily basis. However, I spoke with the patient's spouse and she thinks it is a good idea to start aspirin just in case he could be having a TIA. Please check lipid panel and if his LDL is greater than 70, he is going to be started on moderate intensity statin therapy. I would choose probably lower intensity statin therapy such as pravastatin 20-40 mg at night. Neuro checks every 4 hours. Please treat his postural hypertension and do not treat any supine hypertension. 2. Chest pain. Deferred to the primary team. 3. Parkinson's disease with autonomic dysfunction. Continue his Parkinson's medications at this time. He may be a good candidate for Droxidopa which is used for patient's with Parkinson's disease and autonomic dysfunction. I will continue to follow. [id number] #: [id number] [facility]
[2019-05-05] MEDS ORDERED: Enoxaparin(*) 40 MG/0.4 ML SYR SUBCUT SCH (21:00)
[2019-05-05] MEDS ORDERED: QUEtiapine TAB* 25 MG PO SCH (21:00)
[2019-05-05] MEDS ORDERED: Polyethylene Glycol 3350* 17 GM PACKET PO SCH (21:00)
[2019-05-05] MEDS ORDERED: Atropine 1MG/ML INJ* 1 ML VIAL IV PUSH PRN (21:51)
[2019-05-06] MEDS ORDERED: hydrALAZINE IV* 20 MG/ML VIAL IV SLOW PU PRN (03:14)
[2019-05-06] MEDS: Carbidopa/Levodop CR 50/200(*) TAB.CR PO SCH ×3 (05:16→14:09)
--- NOTE | 2019-05-06 08:41 | PN ---
Subjective - Subjective Reason for Note: Progress Note History: Discharge Summary I spoke with the patient and his , and also reviewed the EHR. 20 years of Parkinson's. Memory - Most confused in the morning. Sometimes he appears lucid, other times he appears he has Alzheimer's. He has orthostatic hypotension. He is now taking fludrocortisone and midodrine. He has hypertension and heartbeat is irregular. 2 days ago episode of garbled speech "Like a turkey" - His makes a garbled sound. No distinct words. Less than 10 mins. Today, he is well - he has slightest chest pain on taking a deep breath, but none at rest. He has his habitual leg pain. Active Problems: Active Problems Chest pain (Acute) R07.9 Depression (Acute) F32.9 Dysarthria (Acute) R47.1 GERD (gastroesophageal reflux disease) (Acute) K21.9 Memory difficulties (Chronic) R41.3 Orthostatic hypotension (Chronic) I95.1 Parkinson disease (Chronic) G20 Sciatica (Chronic) M54.30 Current Medications: Current Medications Aspirin (Aspirin 81 Mg Chew Tab*) 81 mg PO DAILY [facility] Last Admin: 05/05/19 10:41 Dose: Not Given Atropine Sulfate (Atropine 1mg/Ml Inj*) 0.5 mg IV PUSH Q3M PRN PRN Reason: Bradycardia <50 Last Admin: 05/05/19 23:27 Dose: 0.5 mg Carbidopa/Levodopa (Sinemet 25/100 Tab(*)) 0.5 tab PO 0800,1130,1500 [facility] Last Admin: 05/05/19 15:53 Dose: 0.5 tab Carbidopa/Levodopa (Sinemet Cr 50/200(*)) 1 tab.cr PO FIVE TIMES DAILY [facility] Last Admin: 05/06/19 05:16 Dose: 1 tab.cr Enoxaparin Sodium (Lovenox(*)) 40 mg SUBCUT Q24H [facility] Last Admin: 05/05/19 21:17 Dose: 40 mg Fludrocortisone Acetate (Florinef Tab*) 0.1 mg PO DAILY [facility] Last Admin: 05/05/19 11:39 Dose: 0.1 mg Hydralazine HCl (Apresoline Iv*) 5 mg IV SLOW PU Q6H PRN PRN Reason: SBP > 160 Last Admin: 05/06/19 03:30 Dose: 5 mg Midodrine (Midodrine) 2.5 mg PO DAILY [facility] Last Admin: 05/05/19 11:50 Dose: Not Given Polyethylene Glycol/Electrolytes (Miralax*) 17 gm PO BEDTIME [facility] Last Admin: 05/05/19 21:17 Dose: 17 gm Quetiapine Fumarate (Seroquel Tab*) 50 mg PO BEDTIME [facility] Last Admin: 05/05/19 21:17 Dose: 50 mg Sertraline HCl (Zoloft*) 100 mg PO DAILY [facility] Last Admin: 05/05/19 11:39 Dose: 100 mg Home Medications: Home Medications Medication Instructions Recorded Confirmed Type Fludrocortisone Acetate TAB* 0.1 mg PO DAILY 06/24/17 05/05/19 History [Florinef TAB*] Carbidopa/Levodop 25/100 MG(*) 0.5 tab PO 0800,1130,1500 11/18/18 05/05/19 History [Sinemet 25/100 TAB(*)] Carbidopa/Levodop CR 50/200(*) 1 tab.cr PO .FIVE TIMES A DAY 11/18/18 05/05/19 History [Sinemet CR 50/200(*)] Sertraline* [Zoloft*] 100 mg PO DAILY 11/18/18 05/05/19 History Midodrine 2.5 mg PO DAILY 05/05/19 05/05/19 History Miralax 17 g PO BEDTIME 05/05/19 05/05/19 History Seroquel 25 MG TAB* 50 mg PO BEDTIME 05/05/19 05/05/19 History Allergies: Allergies Allergy/AdvReac Type Severity Reaction Status Date / Time bee venom protein (honey bee) Allergy Severe Anaphylatic Verified 05/05/19 04:23 Shock Penicillins Allergy Severe Difficulty Verified 05/05/19 04:23 Breathing nut - unspecified Allergy Anaphylatic Verified 05/05/19 04:23 Shock Objective - Vital Signs Vital Signs: Vital Signs 05/05/19 05/05/19 05/05/19 08:41 09:00 09:43 Temperature Pulse Rate 60 66 Respiratory Rate Blood Pressure 195/118 175/114 (mmHg) O2 Sat by Pulse 97 94 Oximetry 05/05/19 05/05/19 05/05/19 10:00 10:11 10:28 Temperature 98.9 F Pulse Rate 64 67 78 Respiratory 20 Rate Blood Pressure 179/101 210/118 (mmHg) O2 Sat by Pulse 100 98 95 Oximetry 05/05/19 05/05/19 05/05/19 10:42 11:00 11:11 Temperature Pulse Rate Respiratory 11 14 18 Rate Blood Pressure 172/119 174/122 (mmHg) O2 Sat by Pulse Oximetry 05/05/19 05/05/19 05/05/19 11:26 15:15 18:49 Temperature 97.6 F 97 F 97.7 F Pulse Rate 84 101 56 Respiratory 16 20 20 Rate Blood Pressure 174/98 146/67 123/80 (mmHg) O2 Sat by Pulse 98 97 95 Oximetry 05/05/19 05/06/19 05/06/19 23:47 03:03 03:48 Temperature 98.2 F 98.8 F Pulse Rate 54 51 Respiratory 18 18 Rate Blood Pressure 153/81 172/84 164/80 (mmHg) O2 Sat by Pulse 96 96 Oximetry 05/06/19 04:15 Temperature Pulse Rate Respiratory Rate Blood Pressure 156/84 (mmHg) O2 Sat by Pulse Oximetry - Intake and Output Intake and Output: Intake & Output 05/03/19 05/04/19 05/05/19 05/06/19 11:59 11:59 11:59 11:59 Intake Total 120 Output Total 200 Balance -80 Weight 168 lb 3.2 oz Intake: Oral 120 Output: Urine 200 Other: Estimated Void Medium # Bowel Movements 0 # Voids 2 ADLs: Meal Record Start: 05/05/19 10: 28 Freq: DAILY@0900,1400,1800 Status: Active Protocol: Created 05/05/19 10:28 System (Rec: 05/05/19 10:28 System [email or web address]) Document 05/05/19 14:00 [id number] (Rec: 05/05/19 14:44 [id number] [email or web address]) Document 05/05/19 18:00 [id number] (Rec: 05/05/19 20:58 [id number] [email or web address]) Intake and Output Start: 05/05/19 04: 23 Freq: Status: Active Protocol: Created 05/05/19 04:23 System (Rec: 05/05/19 04:23 System [id number]) Intake and Output Start: 05/05/19 10: 28 Freq: DAILY@0600,1400,2200 Status: Active Protocol: Created 05/05/19 10:28 System (Rec: 05/05/19 10:28 System [email or web address]) Document 05/05/19 14:00 [id number] (Rec: 05/05/19 14:44 [id number] [email or web address]) Document 05/05/19 22:00 [id number] (Rec: 05/05/19 22:26 [id number] [id number]) Document 05/06/19 05:15 [id number] (Rec: 05/06/19 05:16 [id number] [id number]) - Physical Exam General Physical Exam Comment: He is disoriented (May 2020, home address). He is able to have a conversation and recalls the garbled speech episode, but not particularly the chest pain - focuses on his leg pain. General: No Cyanosis, No Anemia, No Jaundice, No Clubbing Eye Exam: bilateral: EOMI Lungs and Chest: Yes: Chest Expansion Full, Chest Expansion Symetrica, Percussion Note Resonant, Vessicular Breath Sounds. No: Crackles, Wheezes Heart Rate and Rhythm: Irregular Additional Cardiovascular: Yes: Normal Heart Sounds, Present Pedal Pulse. No: Heart Murmur, Pedal Edema Abdominal Exam: Yes: Soft, Bowel Sounds Present. No: Distention, Abdominal Mass , Hepatomegaly, Abdominal Tenderness, Guarding, Rebound Tenderness - Extremities Cranial Nerves II-XII Intact: Yes - poverty of facial expression Limbs: Normal Power - no focal weakness, Normal Tone - has tremor - Neuro Orientation: Person Psychiatric: Normal Speech: Normal Results - Results Lab Results: Laboratory Results - last 24 hr 05/05/19 05/05/19 04:39 10:00 Hemoglobin A1c 5.3 Troponin I 0.01 Radiology Results: Patient Name: GABY ARROYO Medical Record#: [id number] Ordering Physician: Tommie Peng MD Acct.#: [id number] : 1940 Age: 78 Sex: M Location: EMERGENCY DEPARTMENT Exam Date: 05/05/19418 ADM Status: REG ER Order Information: CHEST AP OR PORT Accession Number: [id number] CPT: 08307 INDICATION: Chest pain COMPARISON: June 24, [address] TECHNIQUE: A portable view of the chest was obtained. FINDINGS: There are presumed bilateral vagal nerve stimulators. Overlying support devices obscure the [id number]. The imaged lungs are clear. There is no pleural effusion. The enlarged cardiac silhouette is unchanged. The upper abdominal contents are normal. There are old right-sided rib fractures. IMPRESSION: 1. No acute cardiopulmonary process by radiograph. 2. Cardiomegaly. 3. Old right-sided rib fractures. 4. Presumed bilateral vagal stimulator. R1NF Preliminary Imaging Read R1NF <Electronically signed by Gaby Bennett MD in [place]> 05/05/19748 Dictated By: Gaby Bennett MD Dictated Date/Time: 05/05/19743 Transcribed Date/Time: 05/05/19743 Copy to:Patient Name: GABY ARROYO Medical Record#: [id number] Ordering Physician: Tommie Peng MD Acct.#: [id number] : 1940 Age: 78 Sex: M Location: EMERGENCY DEPARTMENT Exam Date: 05/05/19 050 ADM Status: REG ER Order Information: CT BRAIN WO Accession Number: [id number] CPT: 49954 PROCEDURE INFORMATION: Exam: CT Head Without Contrast Exam date and time: 05/05/2019 5:42 AM Clinical history: 78 years old, male; Other: R/O CVA left eye bruising/falling/parkinson's; Prior surgery; Surgery date: 6+ months; Surgery type: Craniotomy for placement of deep tissue simulators TECHNIQUE: Imaging protocol: Computed tomography of the head without contrast. Radiation optimization: All CT scans at this facility use at least one of these dose optimization techniques: automated exposure control; mA and/or kV adjustment per patient size (includes targeted exams where dose is matched to clinical indication); or iterative reconstruction. COMPARISON: No relevant prior studies available. FINDINGS: Tubes, catheters and devices: Bilateral frontal neurostimulator electrodes. Brain: Generalized parenchymal atrophy and evidence of microvascular ischemic disease involving periventricular and subcortical white matter bilaterally. Ventricles: Normal. No ventriculomegaly. Bones/joints: Unremarkable. No acute fracture. Sinuses: Visualized sinuses are unremarkable. No fluid levels. Mastoid air cells: Visualized mastoid air cells are well aerated. Soft tissues: Unremarkable. IMPRESSION: No acute intracranial pathology. To contact [facility] with a general question: Operations Center - [phone] For direct physician to physician contact: Physician Hotline - [phone] [facility] ([facility] Facility ID #[id number]) <Electronically signed by Saúl Neal MD in [place]> 05/05/19658 Dictated By: Saúl Neal MD Dictated Date/Time: 05/05/19541 Transcribed Date/Time: 05/05/19541 Copy to: EKG Report: EKG Rate 57 ND 274 QTc 428 QRS axis. Baseline artifact. Sinus/atrial premature beats. 1st degree AV block. LAFB. LVH Assessment - Problem List Assessment: Patient Problems Chest pain (Acute) Depression (Acute) Dysarthria (Acute) GERD (gastroesophageal reflux disease) (Acute) Memory difficulties (Chronic) Orthostatic hypotension (Chronic) Parkinson disease (Chronic) Sciatica (Chronic) Plan: Dysarthria (Acute) He and his provide a history of 10 mins of garbled speech - unintelligible. I have reviewed Dr. Vee Rosado's neurological consultation note. There is a wide differential diagnosis. He has started him on a statin. He started him aspirin warily given his near daily falling. He has had no further episodes. I see no reason he needs further hospitalization for this problem - he can't have and MRI brain owing to his implants Chest pain (Acute) He can't give me a good description. 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 Depression (Acute) not a problem GERD (gastroesophageal reflux disease) (Acute) This may be the cause of his chest pain as it happened at night Memory difficulties (Chronic) ongoing - waxes and wanes according to his Orthostatic hypotension (Chronic) Midodrine and fludrocortisone have been a big help - but he now has some hypertension Parkinson disease (Chronic) His major underlying pathology Sciatica (Chronic) He complains about his leg pain. I spoke to Gaby directly and Basilia Arroyo on the phone. I told them he likely can go home once the stress test is completed if it is normal. Also, neurology will follow up.
[2019-05-06] MEDS: Carbidopa/Levodop 25/100 MG TAB(*) PO SCH ×2 (09:42→12:04)
[2019-05-06] MEDS: CMCS: Midodrine 5 MG TAB PO SCH (09:47)
[2019-05-06] MEDS: Fludrocortisone Acetate TAB* 0.1 MG PO SCH (09:47)
[2019-05-06] MEDS: Aspirin 81 mg CHEW TAB* 81 MG TAB.CHEW PO SCH (09:48)
[2019-05-06] MEDS: Sertraline* 100 MG TAB PO SCH (09:48)
[2019-05-06] MEDS ORDERED: Regadenoson* 0.4 MG/5 ML SYRINGE ONE (10:43)
[2019-05-06] MEDS ORDERED: Aminophylline IV* 25 MG/ML 10 ML VIAL ONE (10:44)
[2019-05-06 13:18] VITALS: BP 159/89
--- NOTE | 2019-05-06 14:29 | PN ---
Progress Note - Progress Note Date of Service: 05/06/19 Note: I reviewed the Nuclear Medicine cardiac stress test - it looks like there is a problem with the anterior wall. I am waiting for the official report. I spoke with Maid Gisele - his and proxy. She would like to discuss whether he should have cardiac investigations with her when he is a lucid spell. She would prefer to do this at home. She doesn't want there to be a cardiology consultation today and fears he would be kept in the [facility] over the weekend. She accepts a referral to Dr. Emil Parks as an outpatient next week. I discussed the following: - He may have a major heart attack that could be fatal - she told me that she was aware of that - This may delay effective treatment - That it is unconventional to send someone home with an abnormality in a stress test and a history of chest pain She is adamant and I agreed that this could be arranged as an outpatient next week. He will continue aspirin and pravastatin and see Dr. Carolyn Sandra and Dr. Emil Parks as soon as possible.
--- NOTE | 2019-05-13 02:47 | HP ---
CC: Dr. Johnson * HISTORY AND PHYSICAL: DATE OF ADMISSION: 05/05/19 PRIMARY CARE PROVIDER: Dr. Johnson. CHIEF COMPLAINT: Episode of garbled speech. HISTORY OF PRESENT ILLNESS: Mr. Jaquez is a 78-year-old male who has a history of Parkinson disease, who presented to the emergency room with complaints of an episode of garbled speech. The patient was out walking with his on 05/04/19, when he suddenly developed garbled speech. This lasted for approximately 10 minutes. He was in an upright position when this occurred. He got home and he sat down in a chair. The speech returned to normal. On the morning of admission, the patient awakened from sleep at approximately 3 a.m. due to severe chest pain. The patient himself is a poor historian. He is not exactly sure of what time the chest pain was. His believes that it was around 3 a.m. because that is the time she was awakened from sleep by him. Pain stayed local. He had no associated symptoms except for mild shortness of breath. PAST MEDICAL HISTORY: 1. Orthostatic hypotension secondary to Parkinson's disease. 2. Parkinson's disease. 3. Chronic inflammatory demyelinating polyneuritis. 4. Hypertension. 5. Dyslipidemia. PAST SURGICAL HISTORY: 1. Lumbar spine surgery. 2. Bilateral deep brain stimulators. MEDICATIONS: 1. Fludrocortisone 0.1 mg p.o. daily. 2. Sertraline 100 mg p.o. daily. 3. Carbidopa/levodopa 0.5 tabs 8 o'clock, 11:30, and 1500. 4. Carbidopa/levodopa 50/200 one tablet p.o. 5 times daily. 5. Seroquel 25 mg p.o. q.h.s. 6. Midodrine 2.5 mg p.o. daily. 7. MiraLAX 17 g p.o. q.h.s. ALLERGIES: BEE VENOM, PENICILLIN, and NUTS. FAMILY HISTORY: Negative for family history of stroke or seizures. 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 He previously smoked cigarettes. He does not drink alcohol. He is . He lives at [place] [facility] [place]. REVIEW OF SYSTEMS: Complete 11-system review of systems was obtained. Pertinent positives and negatives are as per HPI and otherwise negative. PHYSICAL EXAMINATION GENERAL: The patient is a well-developed elderly male, seen sitting up in the stretcher, in no acute distress. VITAL SIGNS: Blood pressure 195/118, pulse 76, respiratory rate 16, temp 98, O2 saturation 97% on room air. HEENT: Extraocular muscles are intact. Oropharynx is clear but dry. PULMONARY: Lungs are clear to auscultation bilaterally. CARDIAC: Normal S1, S2. Regular rate and rhythm. I do not appreciate any murmurs. ABDOMEN: Bowel sounds are present. Abdomen is soft, nontender, and nondistended. MUSCULOSKELETAL: The patient moves all 4 extremities symmetrically. SKIN: There are no rashes. NEUROLOGIC: The patient is awake, alert, and oriented to person but not time or place. Cranial nerves II through XII are grossly intact. Sensation is intact to light touch throughout. Strength is 5/5 and symmetric in the upper and lower extremities bilaterally. PSYCH: The patient, again, is alert. He is oriented to person. He is a poor historian. DIAGNOSTIC STUDIES/LAB DATA: WBC 4.5, hemoglobin 12.7, hematocrit 37, platelets 141. Sodium 142, potassium 4.4, chloride 109, CO2 of 31. BUN 21, creatinine 0.7. Glucose 111. Hemoglobin A1c 5.3. Lactic acid 0.7. Calcium 8.8. Bilirubin 0.5, AST 10, ALT less than 3, alk phos 89. Troponin 0.01. Albumin 4.0. EKG reveals normal sinus rhythm with probable LVH and repolarization abnormality. Chest x-ray, no acute cardiopulmonary process. CT brain, no acute intracranial pathology. ASSESSMENT AND PLAN: Mr. Jaquez is a 78-year-old male who has a history of Parkinson's disease and orthostatic hypotension related to that, who presents to the emergency room with 2 issues. The first being an episode of garbled speech the day prior to admission and the second being an episode of severe chest pain that awakened the patient from sleep. 1. Chest pain. The patient will be admitted and ruled out for an acute coronary syndrome. He will undergo a Lexiscan nuclear stress test. 2. Episode of garbled speech. This possibly was transient ischemic attack; however, also could be secondary to hypotension and poor perfusion. The patient will undergo transthoracic echocardiogram. He cannot have an MRI given his deep brain stimulators. I will ask for neurology consultation. We will also start aspirin low dose. 3. Parkinson's disease. The patient will continue on his usual doses of carbidopa/levodopa. 4. Supine hypertension. At this point, the patient has marked supine hypertension with significant orthostatic hypotension. For now, I will not treat the supine hypertension. The blood pressure will need to be monitored closely. 5. DVT prophylaxis. According to the Adult Thrombosis Prophylaxis Risk Factor Assessment Guide, the patient has a total risk factor score of 3, making him high risk. He will be on Lovenox for DVT prophylaxis. 6. Code status is full. TIME SPENT: Fifty five minutes was spent admitting this patient. /[id number]/[facility] #: [id number]
== END 2019-05-06 15:00 | disposition home or self-care (01) ==
LOC: ED 04:05 → MEDTELE 08:09
PROVIDERS: ADMIT Hospitalist; ATTEND Internal Medicine
DX: R07.9 Chest pain, unspecified (principal); F32.9 Major depressive disorder, single episode, unspecified; R41.3 Other amnesia; I95.1 Orthostatic hypotension; R47.1 Dysarthria and anarthria; M54.30 Sciatica, unspecified side; Z88.0 Allergy status to penicillin; F41.9 Anxiety disorder, unspecified; Z87.891 Personal history of nicotine dependence; G45.9 Transient cerebral ischemic attack, unspecified; G20 Parkinson's disease; K21.9 Gastro-esophageal reflux disease without esophagitis; Z79.82 Long term (current) use of aspirin; Z79.899 Other long term (current) drug therapy; R94.31 Abnormal electrocardiogram [ECG] [EKG]; E03.9 Hypothyroidism, unspecified
CPT/HCPCS: 36415; 70450; 71045; 78452; 80053; 83036; 83605; 84484; 85025; 93005; 93017; 93306; 96372; 99285; A9270-GY; A9502; G0378; J0280; J0360; J0461; J1650; J2785